=== PATIENT | male | born 1960 | race Caucasian/White ===

== ENCOUNTER 2016-12-02 13:52 | Emergency (ER) | payer OTHER ==
[2016-12-02 14:00] VITALS: BP 132/89; PULSE 105; TEMP 98; BMI 29.0
[2016-12-02] MEDS ORDERED: VANCOMYCIN 1,000 MG in DEXTROSE 5%-WATER - 250 ML IVPB ONE (14:54)
[2016-12-02] MEDS ORDERED: SODIUM CHLORIDE 1,000 ML IV ONE (14:55)
[2016-12-02] MEDS ORDERED: SODIUM CHLORIDE 0.9% 1000 ML INFUS.BAG IV ONE (14:56)
[2016-12-02] MEDS ORDERED: VANCOMYCIN 1 GRAM (PRE-DOCKED) 250 ML IVPB ONE (15:08)
--- NOTE | 2016-12-02 15:17 | PDOC ---
History of Present Illness - General Chief Complaint: Bite Stated Complaint: DOGBITE Time Seen by Provider: 12/02/16 14:16 History Source: Patient Exam Limitations: No Limitations - History of Present Illness Initial Comments: 12/02/16 15:40 Patient was playing with his dog yesterday when while roughhousing dog accidentally bit him in the left hand. Patient states cleaned wound but woke up this morning with swelling, pain and difficulty flexing and extending fingers. Was seen by his doctor at [facility] recommended him coming to the emergency department for evaluation and treatment. Patient denies fever, denies any purulent drainage from wound however is becoming more swollen and erythematous throughout today Occurred: reports: yesterday Severity: reports: mild, moderate Pain Location: reports: upper extremity Method of Injury: Yes: other (left hand) Past History - Travel Traveled outside of the country in the last 30 days: No Close contact w/someone who was outside of country & ill: No - Past Medical History Allergies/Adverse Reactions: Allergies Allergy/AdvReac Type Severity Reaction Status Date / Time No Known Allergies Allergy Verified 12/02/16 13:56 Home Medications: Ambulatory Orders Cyclobenzaprine HCl [Amrix] 15 mg PO HS #3 capsule 09/25/13 Hydrocodone/Acetaminophen [[place] 5-325 Tablet] 1 - 2 tab PO Q4H PRN #30 tablet 09/25/13 Ibuprofen [Motrin Ib] 200 mg PO Q6H PRN #0 09/25/13 Ketorolac Tromethamine [Toradol] 10 mg PO Q6H #20 tablet 09/25/13 Naproxen Sodium [Aleve] 220 mg PO Q6H PRN #0 09/25/13 Amoxicillin/Potassium Clav [Augmentin 875-125 Tablet] 1 each PO BID #14 tablet 12/02/16 Anemia: No Asthma: No Cancer: Yes (WARP DRAWER LYMPHOMA) Cardiac Disorders: No CVA: No COPD: No CHF: No Dementia: No Diabetes: No GI Disorders: No Disorders: No HTN: No Hypercholesterolemia: No Liver Disease: No Seizures: No Thyroid Disease: No - Psycho/Social/Smoking Cessation Hx Suicidal Ideation: No Smoking History: Current every day smoker Have you smoked in the past 12 months: Yes Number of Cigarettes Smoked Daily: 10 Information on smoking cessation initiated: No Hx Alcohol Use: Yes (SOCIAL) Drug/Substance Use Hx: No Substance Use Type: Alcohol Hx Substance Use Treatment: No Trauma Specific PMHX - Complaint Specific PMHX Back Injury: No Neck Injury: No Review of Systems - Review of Systems Able to Perform ROS?: Yes Is the patient limited Northern Irish proficient: Yes Constitutional: Yes: Symptoms Reported HEENTM: No: Symptoms Reported Integumentary: Yes: Symptoms Reported, Erythema, Other (swelling and streaking noted to the left hand extending up past elbow) Neurological: Yes: Symptoms reported All Other Systems: Reviewed and Negative *Physical Exam - Vital Signs Last Vital Signs Temp Pulse Resp BP Pulse Ox 98 F 105 H 19 132/89 98 12/02/16 13:57 12/02/16 13:57 12/02/16 13:57 12/02/16 13:57 12/02/16 13:57 - Physical Exam General Appearance: Yes: Appropriately Dressed, Apparent Distress HEENT: positive: LUIS, Normal ENT Inspection, TMs Normal, Pharynx Normal Neck: positive: Supple. negative: Lymphadenopathy (R), Lymphadenopathy (L) Respiratory/Chest: positive: Lungs Clear, Normal Breath Sounds Gastrointestinal/Abdominal: positive: Soft. negative: Tender Musculoskeletal: positive: Decreased Range of Motion (with swelling and pain to dorsum of hand ) Extremity: positive: Tender Integumentary: positive: Warm, Erythema, Other (with streaking up ) Neurologic: positive: switch operator II-XII NML intact, Fully Oriented, Alert, Normal Mood/ Affect, Normal Response, Motor Strength 5/5 ED Treatment Course - LABORATORY CBC & Chemistry Diagram: 12/02/16 15:00 12/02/16 15:00 Progress Note - Progress Note Progress Note: Dog bite with lymphangitis, will obtain labs, ride 1 g of vancomycin and reevaluate area patient understands if laboratory work and symptoms showed no improvement will probably need admission for hand cellulitis. Denies need for pain medication presently Medical Decision Making - Medical Decision Making 12/02/16 18:09 12/02/16 18:20 Patient has received 1 g of vancomycin, and 500 mg of Flagyl. 1 dose of Augmentin 875 mg by mouth. States hand feels better although is still swollen, feels is less erythematous and streaking is mildly resolved. Patient agrees feels comfortable being discharged, will receive antibiotic Augmentin to continue twice a day for one week. Agrees will return here tomorrow for reevaluation of wound and understands if worsens symptoms, fevers, swelling, problems will return immediately to this emergency department elisabet 12/02/16 18:24 *DC/Admit/Observation/Transfer Diagnosis at time of Disposition: Dog bite of hand Qualifiers: Encounter type: initial encounter Laterality: right Qualified Code(s): S61.451A - Open bite of right hand, initial encounter; W54.0XXA - Bitten by dog , initial encounter - Discharge Dispostion Disposition: HOME Condition at time of disposition: Stable Admit: No - Patient Instructions Printed Discharge Instructions: How to Care for a Domestic Animal Bite Additional Instructions: Rest, keep area elevated. At all times Avoid strenuous activity or exercise until wound is healed Use hot soaks to area to bring more blood to the surface and encourage drainage as often as possible Change his dressing daily until the wound is completely healed. May use Tylenol or Motrin for mild pain relief Continue all medications as prescribed- Augmentin 875 mg tablets twice a day Return to this emergency Department tomorrow before 5 PM for wound check Return to emergency Department for worsening swelling, pain, redness, fevers as needed - Post Discharge Activity Work/School Note: Back to Work
[2016-12-02 15:20] LABS: BASOPHIL 0.4 % (0-2.0); EOSINOPHIL 0.4 % (0-4.5); MCH 31.5 pg (25.7-33.7); MCHC 34.3 g/dl (32.0-35.9); MEAN CELL VOLUME 92.1 fl (80-96); MEAN PLT VOLUME 9.5 fl (7.5-11.1); NEUTROPHILS 79.1 % (42.8-82.8); PLATELET COUNT 194 K/MM3 (134-434); RDW 13.1 % (11.9-15.9); WHITE BLOOD COUNT 13.3 K/mm3 (4.0-10.0)
[2016-12-02 15:46] LABS: ALBUMIN 4.3 g/dl (3.4-5.0); ALK PHOS 111 U/L (45-117); ANION GAP 10 (8-16); BILIRUBIN,TOTAL 0.8 mg/dL (0.2-1.0); CALCIUM 9.4 mg/dL (8.5-10.1); CO2 27 mmol/L (21-32); COCKROFT - GAULT 81.26; CREATININE 1.2 mg/dL (0.7-1.3); GLUCOSE,RANDOM 81 mg/dL (74-106); SGOT/AST 25 U/L (15-37); SGPT/ALT 58 U/L (12-78); TOT PROT 7.4 g/dl (6.4-8.2)
--- NOTE | 2016-12-02 15:55 | PDOC ---
History of Present Illness - General Chief Complaint: Bite Stated Complaint: DOGBITE Time Seen by Provider: 12/02/16 14:16 History Source: Patient, Family Exam Limitations: No Limitations - History of Present Illness Initial Comments: 12/02/16 15:02 bitten by family dog yesterday. to left hand at MCP of 3rd digit. Now with pain and swelling to hand with red streaking. Past History - Past Medical History Allergies/Adverse Reactions: Allergies Allergy/AdvReac Type Severity Reaction Status Date / Time No Known Allergies Allergy Verified 12/02/16 13:56 Home Medications: Ambulatory Orders Cyclobenzaprine HCl [Amrix] 15 mg PO HS #3 capsule 09/25/13 Hydrocodone/Acetaminophen [[place] 5-325 Tablet] 1 - 2 tab PO Q4H PRN #30 tablet 09/25/13 Ibuprofen [Motrin Ib] 200 mg PO Q6H PRN #0 09/25/13 Ketorolac Tromethamine [Toradol] 10 mg PO Q6H #20 tablet 09/25/13 Naproxen Sodium [Aleve] 220 mg PO Q6H PRN #0 09/25/13 Anemia: No Asthma: No Cancer: Yes (MANAGER OF RADIOLOGY LYMPHOMA) Cardiac Disorders: No CVA: No COPD: No CHF: No Dementia: No Diabetes: No GI Disorders: No Disorders: No HTN: No Hypercholesterolemia: No Liver Disease: No Seizures: No Thyroid Disease: No - Psycho/Social/Smoking Cessation Hx Suicidal Ideation: No Smoking History: Current every day smoker Have you smoked in the past 12 months: Yes Number of Cigarettes Smoked Daily: 10 Information on smoking cessation initiated: No Hx Alcohol Use: Yes (SOCIAL) Drug/Substance Use Hx: No Substance Use Type: Alcohol Hx Substance Use Treatment: No *Physical Exam - Vital Signs Last Vital Signs Temp Pulse Resp BP Pulse Ox 98 F 105 H 19 132/89 98 12/02/16 13:57 12/02/16 13:57 12/02/16 13:57 12/02/16 13:57 12/02/16 13:57 ED Treatment Course - RADIOLOGY Radiology Studies Ordered: Category Date Time Status HAND- LEFT [RAD] Stat Radiology 12/02/16 14:38 Taken
[2016-12-02] MEDS ORDERED: AMOX TR/POT CLAV 875MG/125MG TABLETS (FP) PO ONE (16:55)
[2016-12-02] MEDS ORDERED: METRONIDAZOLE 500 MG PREMIXED 100 ML IVPB ONE ×2 (16:55→17:16)
[2016-12-02] MEDS ORDERED: AMOX TR/POT CLAV 875MG/125MG TABLETS (FP) ONE (17:17)
== END 2016-12-02 18:40 | disposition home or self-care (01) ==
LOC: JERFT 13:52
DX: S61.451A Open bite of right hand, initial encounter (principal); W54.0XXA Bitten by dog, initial encounter; Y93.K9 Activity, other involving animal care; Y92.018 Other place in single-family (private) house as the place of occurrence of the external cause
CPT/HCPCS: 36415; 73130-TC-LT; 80053; 85025; 87040; 99281-25

== ENCOUNTER 2016-12-03 13:46 | Inpatient (IN) | payer OTHER ==
[2016-12-03] MEDS ORDERED: AMPICILLIN NA/SULBACTAM NA 3 GM in SODIUM CHLORIDE 100 ML IVPB ONE (14:45)
--- NOTE | 2016-12-03 14:45 | PDOC ---
History of Present Illness - General Chief Complaint: Revisit,Wound Recheck Stated Complaint: WOUND CHECK Time Seen by Provider: 12/03/16 13:55 History Source: Patient Exam Limitations: No Limitations - History of Present Illness Initial Comments: 56 yo M presents with L hand swelling. He states that he was playing with his dog on 12/01/16, sustained a bite while they were playing. He noted significant swelling with streaking up his arm yesterday. He was treated in the ED in fast track, given IV abx and rx for PO abx, counseled to follow up today. Today he states that the swelling is slightly better, but his hand is still swollen. No drainage from the wound. Past History - Past Medical History Allergies/Adverse Reactions: Allergies Allergy/AdvReac Type Severity Reaction Status Date / Time No Known Allergies Allergy Verified 12/03/16 13:50 Home Medications: Ambulatory Orders Cyclobenzaprine HCl [Amrix] 15 mg PO HS #3 capsule 09/25/13 Hydrocodone/Acetaminophen [[place] 5-325 Tablet] 1 - 2 tab PO Q4H PRN #30 tablet 09/25/13 Ibuprofen [Motrin Ib] 200 mg PO Q6H PRN #0 09/25/13 Ketorolac Tromethamine [Toradol] 10 mg PO Q6H #20 tablet 09/25/13 Naproxen Sodium [Aleve] 220 mg PO Q6H PRN #0 09/25/13 Amoxicillin/Potassium Clav [Augmentin 875-125 Tablet] 1 each PO BID #14 tablet 12/02/16 Anemia: No Asthma: No 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) Cardiac Disorders: No CVA: No COPD: No CHF: No Dementia: No Diabetes: No GI Disorders: No Disorders: No HTN: No Hypercholesterolemia: No Liver Disease: No Seizures: No Thyroid Disease: No - Psycho/Social/Smoking Cessation Hx Anxiety: No Suicidal Ideation: No Smoking History: Current every day smoker Have you smoked in the past 12 months: Yes Number of Cigarettes Smoked Daily: 10 Information on smoking cessation initiated: No Hx Alcohol Use: Yes (RARE) Drug/Substance Use Hx: No Substance Use Type: None Hx Substance Use Treatment: No Review of Systems - Review of Systems Comments:: GENERAL/CONSTITUTIONAL: No fever or chills. No weakness. HEAD, EYES, EARS, NOSE AND THROAT: No change in vision. No ear pain or discharge. No sore throat. CARDIOVASCULAR: No chest pain or shortness of breath. RESPIRATORY: No cough, wheezing, or hemoptysis. GASTROINTESTINAL: No nausea, vomiting, diarrhea or constipation. GENITOURINARY: No dysuria, frequency, or change in urination. MUSCULOSKELETAL: +L hand swelling and redness. SKIN: No rash NEUROLOGIC: No headache, vertigo, loss of consciousness, or change in strength/ sensation. ENDOCRINE: No increased thirst. No abnormal weight change. HEMATOLOGIC/LYMPHATIC: No anemia, easy bleeding, or history of blood clots. ALLERGIC/IMMUNOLOGIC: No hives or skin allergy. Is the patient limited Occitan proficient: Yes *Physical Exam - Vital Signs Last Vital Signs Temp Pulse Resp BP Pulse Ox 98.3 F 102 H 20 118/91 99 12/03/16 13:47 12/03/16 13:47 12/03/16 13:47 12/03/16 13:47 12/03/16 13:47 - Physical Exam Comments: GENERAL: Awake, alert, and fully oriented, in no acute distress HEAD: No signs of trauma EYES: PERRLA, EOMI, sclera anicteric, conjunctiva clear ENT: Auricles normal inspection, hearing grossly normal, nares patent, oropharynx clear without exudates. Moist mucosa NECK: Normal ROM, supple, no lymphadenopathy, JVD, or masses LUNGS: Breath sounds equal, clear to auscultation bilaterally. No wheezes, and no crackles HEART: Regular rate and rhythm, normal S1 and S2, no murmurs, rubs or gallops ABDOMEN: Soft, nontender, normoactive bowel sounds. No guarding, no rebound. No masses EXTREMITIES: L dorsal hand erythematous and edematous, no induration, with lymphatic streaking to the forearm. +Puncture luis just proximal to the MCP joints. Remainder of extremities with normal range of motion, no edema. No clubbing or cyanosis. No cords. NEUROLOGICAL: Cranial nerves II through XII grossly intact. Normal speech, normal gait SKIN: Warm, Dry, normal turgor, no rashes or lesions noted. ED Treatment Course - LABORATORY CBC & Chemistry Diagram: 12/03/16 14:50 12/03/16 14:50 Medical Decision Making - Medical Decision Making Noted that yesterday's x-ray showed FB- patient states that he has a metallic FB in the 4th finger from 25 years ago, unrelated to this current presentation. *DC/Admit/Observation/Transfer Diagnosis at time of Disposition: Cellulitis and abscess of hand Dog bite of hand Qualifiers: Encounter type: subsequent encounter Laterality: left Qualified Code(s): S61.452D - Open bite of left hand, subsequent encounter - Discharge Dispostion Condition at time of disposition: Stable Admit: Yes - Referrals Referrals: Ricardo Skinner MD [Primary Care Provider] - - Patient Instructions - Post Discharge Activity
--- NOTE | 2016-12-03 14:45 | PDOC ---
History of Present Illness - General Chief Complaint: Revisit,Wound Recheck Stated Complaint: WOUND CHECK Time Seen by Provider: 12/03/16 13:55 History Source: Patient Exam Limitations: No Limitations - History of Present Illness Initial Comments: 12/03/16 14:40 Dog bite 2 days ago with cellulitis. Failed home by mouth antibiotics, return today for reevaluation but not significantly improved therefore we will admit Severity: reports: moderate, severe Pain Location: reports: upper extremity Method of Injury: Yes: other (left hand) Past History - Travel Traveled outside of the country in the last 30 days: No Close contact w/someone who was outside of country & ill: No - Past Medical History Allergies/Adverse Reactions: Allergies Allergy/AdvReac Type Severity Reaction Status Date / Time No Known Allergies Allergy Verified 12/03/16 13:50 Home Medications: Ambulatory Orders Cyclobenzaprine HCl [Amrix] 15 mg PO HS #3 capsule 09/25/13 Hydrocodone/Acetaminophen [[place] 5-325 Tablet] 1 - 2 tab PO Q4H PRN #30 tablet 09/25/13 Ibuprofen [Motrin Ib] 200 mg PO Q6H PRN #0 09/25/13 Ketorolac Tromethamine [Toradol] 10 mg PO Q6H #20 tablet 09/25/13 Naproxen Sodium [Aleve] 220 mg PO Q6H PRN #0 09/25/13 Amoxicillin/Potassium Clav [Augmentin 875-125 Tablet] 1 each PO BID #14 tablet 12/02/16 Anemia: No Asthma: No 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) Cardiac Disorders: No CVA: No COPD: No CHF: No Dementia: No Diabetes: No GI Disorders: No Disorders: No HTN: No Hypercholesterolemia: No Liver Disease: No Seizures: No Thyroid Disease: No - Psycho/Social/Smoking Cessation Hx Anxiety: No Suicidal Ideation: No Smoking History: Current every day smoker Have you smoked in the past 12 months: Yes Number of Cigarettes Smoked Daily: 10 Information on smoking cessation initiated: No Hx Alcohol Use: Yes (RARE) Drug/Substance Use Hx: No Substance Use Type: None Hx Substance Use Treatment: No Trauma Specific PMHX - Complaint Specific PMHX Back Injury: No Neck Injury: No Review of Systems - Review of Systems Able to Perform ROS?: Yes Is the patient limited Moldovan proficient: Yes Constitutional: Yes: See HPI. No: Symptoms Reported, Fever HEENTM: No: Symptoms Reported Respiratory: No: Symptoms reported Integumentary: Yes: Symptoms Reported, See HPI, Erythema, Lesions (open wound to ) All Other Systems: Reviewed and Negative *Physical Exam - Vital Signs Last Vital Signs Temp Pulse Resp BP Pulse Ox 98.3 F 102 H 20 118/91 99 12/03/16 13:47 12/03/16 13:47 12/03/16 13:47 12/03/16 13:47 12/03/16 13:47 - Physical Exam General Appearance: Yes: Appropriately Dressed, Apparent Distress HEENT: positive: TMs Normal Neck: positive: Supple. negative: Lymphadenopathy (R), Lymphadenopathy (L) Cardiovascular: positive: Regular Rhythm *DC/Admit/Observation/Transfer Diagnosis at time of Disposition: Dog bite of hand Qualifiers: Encounter type: subsequent encounter Laterality: left Qualified Code(s): S61.452D - Open bite of left hand, subsequent encounter; W54.0XXD - Bitten by dog, subsequent encounter - Discharge Dispostion Condition at time of disposition: Stable
[2016-12-03 15:08] LABS: BASOPHIL 0.6 % (0-2.0); EOSINOPHIL 1.2 % (0-4.5); MCH 32.1 pg (25.7-33.7); MCHC 34.6 g/dl (32.0-35.9); MEAN CELL VOLUME 92.8 fl (80-96); MEAN PLT VOLUME 9.4 fl (7.5-11.1); NEUTROPHILS 71.2 % (42.8-82.8); PLATELET COUNT 170 K/MM3 (134-434); RDW 13.3 % (11.9-15.9); WHITE BLOOD COUNT 9.8 K/mm3 (4.0-10.0)
[2016-12-03 15:30] LABS: ALBUMIN 3.9 g/dl (3.4-5.0); ANION GAP 9 (8-16); BILIRUBIN,TOTAL 0.5 mg/dL (0.2-1.0); CALCIUM 8.6 mg/dL (8.5-10.1); CO2 26 mmol/L (21-32); COCKROFT - GAULT 88.65; CREATININE 1.1 mg/dL (0.7-1.3); GLUCOSE,RANDOM 96 mg/dL (74-106); SGPT/ALT 48 U/L (12-78)
[2016-12-03 15:31] LABS: ALK PHOS 97 U/L (45-117)
[2016-12-03 15:34] LABS: SGOT/AST 28 U/L (15-37)
--- NOTE | 2016-12-03 15:47 | PN ---
Teaching Attending Note Name of Resident: Abdias Millre ATTENDING PHYSICIAN STATEMENT I saw and evaluated the patient. I reviewed the resident's note and discussed the case with the resident. I agree with the resident's findings and plan as documented. SUBJECTIVE: The patient is a 56 year old male with a significant past medical history of resolved ANTHROPOMETRIST lymphona (sp SCT) who was bitten on the left hand by his own dog on 12/01 and was seen in the ED yesterday when he noted redness at the bite area. He was given IV Flagy, IV Vanco and oral Augmentin in the ED yesterday and was discharged on Augmentin. He presented to the ED today after the area of redness increased and began migrating proximally. He denies fever, chills. OBJECTIVE: Vitals noted Labs noted He is well appearing Puncture wound on dorsum of hand on medial 4th finder at level of PIP No crepitance at wound site There is erythema, edema, increased warmth and tenderness over the lateral dorsal hand, with extension just proximal to the wrist. There is erythema, edema, increased warmth and tenderness over the lateral ventral hand, withe xtension just proximal to lizbeth wrist and then an area of faint streaking redness following a lymphatic route up the forearm, to the elbow Xray from yesterday: foreign body in distal 4th finger, which the patient insists is chronic ASSESSMENT AND PLAN: -Cellulitis with lymphangitic spread No evidence of sepsis or deep tissue infection Has received IV flagyl, IV Vanco and oral Augmentin yesterday. Yet symptoms are worsening Got Unasyn in the ED today Will change regimen to Ertapenem and Vancomycin to cover anaerobes, gram negatives including pseudomonas, gram positives including MRSA Will consult ID and Hand Will follow closely See resident note for full details
--- NOTE | 2016-12-03 15:50 | HP ---
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 Patient was seen in the ED yesterday and treated with Flagyl vanco and augmentin and given script for PO Augmentin. He came back today becauise he was told to do so for follow up. He was bit over the fourth knuckle of the left hand and Per the patient and ED records he had streaking lympnangitis/cellulitis going up the volar aspect of his forearm up to the antecubial fossa. today he presents to follow up the streaking has significantly improved but over the dorsal aspect of his hand the redness and swelling did not improve. He denies nausea vomting fevers chilsl chest pain or shortness of breath. He denies any other PMH or any home meds. Recent Travel:Denies PAST MEDICAL HISTORY:See above PAST SURGICAL HISTORY:Denies Social History: Smokin/2 PPD Alcohol:Denies Drugs: Denies Allergies No Known Allergies Allergy (Verified 12/03/16 13:50) HOME MEDICATIONS: Home Medications Medication Instructions Recorded Cyclobenzaprine HCl [Amrix] 15 mg PO HS #3 capsule 09/25/13 Hydrocodone/Acetaminophen [[place] 1 - 2 tab PO Q4H PRN #30 tablet 09/25/13 5-325 Tablet] Ibuprofen [Motrin Ib] 200 mg PO Q6H PRN #0 09/25/13 Ketorolac Tromethamine [Toradol] 10 mg PO Q6H #20 tablet 09/25/13 Naproxen Sodium [Aleve] 220 mg PO Q6H PRN #0 09/25/13 Amoxicillin/Potassium Clav 1 each PO BID #14 tablet 12/02/16 [Augmentin 875-125 Tablet] REVIEW OF SYSTEMS CONSTITUTIONAL: Absent: fever, chills, diaphoresis, generalized weakness, malaise, loss of appetite, weight change HEENT: Absent: rhinorrhea, nasal congestion, throat pain, throat swelling, difficulty swallowing, mouth swelling, ear pain, eye pain, visual changes CARDIOVASCULAR: Absent: chest pain, syncope, palpitations, irregular heart rate, lightheadedness , peripheral edema RESPIRATORY: Absent: cough, shortness of breath, dyspnea with exertion, orthopnea, wheezing, stridor, hemoptysis GASTROINTESTINAL: Absent: abdominal pain, abdominal distension, nausea, vomiting, diarrhea, constipation, melena, hematochezia GENITOURINARY: Absent: dysuria, frequency, urgency, hesitancy, hematuria, flank pain, genital pain MUSCULOSKELETAL: Absent: myalgia, arthralgia, joint swelling, back pain, neck pain SKIN: Present: Dog bit to hand with streaking cellulitis HEMATOLOGIC/IMMUNOLOGIC: Absent: easy bleeding, easy bruising, lymphadenopathy, frequent infections ENDOCRINE: Absent: unexplained weight gain, unexplained weight loss, heat intolerance, cold intolerance NEUROLOGIC: Absent: headache, focal weakness or paresthesias, dizziness, unsteady gait, seizure, mental status changes, bladder or bowel incontinence PSYCHIATRIC: Absent: anxiety, depression, suicidal or homicidal ideation, hallucinations. PHYSICAL EXAMINATION Vital Signs - 24 hr 12/03/16 13:47 Temperature 98.3 F Pulse Rate 102 H Respiratory 20 Rate Blood Pressure 118/91 O2 Sat by Pulse 99 Oximetry (%) GENERAL: Awake, alert, and fully oriented, in no acute distress. HEAD: Normal with no signs of trauma. EYES: Pupils equal, round and reactive to light, extraocular movements intact, sclera anicteric, conjunctiva clear. No lid lag. EARS, NOSE, THROAT: Ears normal, nares patent, oropharynx clear without exudates. Moist mucous membranes. NECK: Normal range of motion, supple no JVD LUNGS: Breath sounds equal, clear to auscultation bilaterally. No wheezes, and no crackles. No accessory muscle use. HEART: Regular rate and rhythm, normal S1 and S2 without murmur, rub or gallop. ABDOMEN: Soft, nontender, not distended, normoactive bowel sounds, no guarding, no rebound, no masses. MUSCULOSKELETAL: Normal range of motion at all joints. No bony deformities or tenderness. No CVA tenderness. UPPER EXTREMITIES: 2+ pulses, warm, well-perfused. left hand is erythematous and hot to touch over the dorsum of the hand with a superficial puncture over the fourth knuckle. Resolving streaking cellulitis going up the volar aspect of the forearm to the antecubital fossa which has improved per patient but the swelling and redness is worsening over the hand. no crepitance is appreciated LOWER EXTREMITIES: warm, well-perfused. No calf tenderness. No peripheral edema. NEUROLOGICAL: Cranial nerves II-XII intact. Normal speech. PSYCHIATRIC: Cooperative. Laboratory Results - last 24 hr 12/03/16 12/03/16 14:50 14:50 WBC 9.8 RBC 5.11 Hgb 16.4 Hct 47.4 MCV 92.8 MCHC 34.6 RDW 13.3 Plt Count 170 MPV 9.4 Neutrophils % 71.2 Lymphocytes % 21.1 D Monocytes % 5.9 Eosinophils % 1.2 D Basophils % 0.6 Sodium 141 Potassium 4.7 Chloride 106 Carbon Dioxide 26 Anion Gap 9 BUN 17 Creatinine 1.1 Creat Clearance w eGFR > 60 Random Glucose 96 Calcium 8.6 Total Bilirubin 0.5 D AST 28 ALT 48 Alkaline Phosphatase 97 Total Protein 7.0 Albumin 3.9 Left Hand XR 12/02/2016-no acute pathology metallic foreign object seen near fourth proximal phalynx-patient states this is 25 years old ASSESSMENT/PLAN: 56M with no significant PMH presents to the ED with a dog bite and failed outpatient antibiotics Dog bite leading to cellulitis/lymphangitis: Admit to inpatient Med/Surg Hand surgery consult ID consult STAT vanco STAT ertapenem F/U BCx F/U WCx Unasyn given in ED today history of MARKET G[employer] WORKER lymphoma: not active at this time in remission can continue with outpatient follow up FEN: no IVF no electrolyte issues Regular diet PPx: Lovenox/SCDs/Early ambulation no GI PPx needed No PT consult needed Patient seen and case discusses with Dr. Miller Visit type - Emergency Visit Emergency Visit: Yes Care time: The patient presented to the Emergency Department on the above date and was hospitalized for further evaluation of their emergent condition. - New Patient This patient is new to me today: Yes Date on this admission: 12/03/16 - Critical Care Critical Care patient: No
[2016-12-03] MEDS ORDERED: ERTAPENEM SODIUM 1 GM in SODIUM CHLORIDE 50 ML IVPB STA (16:05)
[2016-12-03] MEDS ORDERED: VANCOMYCIN 1 GRAM (PRE-DOCKED) 1,000 MG/250 ML BAG IVPB STA (16:06)
[2016-12-03] MEDS ORDERED: ACETAMINOPHEN 325 MG TABLET (FP) PO PRN (16:15)
[2016-12-03] MEDS ORDERED: oxyCODONE HCL 5 MG TABLET PO PRN (16:16)
[2016-12-03] MEDS ORDERED: VANCOMYCIN 1 GRAM (PRE-DOCKED) 1,000 MG/250 ML BAG IVPB ONE (16:45)
[2016-12-03] MEDS ORDERED: VANCOMYCIN 1 GRAM (PRE-DOCKED) 250 ML IVPB ONE (17:09)
[2016-12-04 02:26] VITALS: BMI 30.4
[2016-12-04 08:50] LABS: MCH 31.9 pg (25.7-33.7); MCHC 34.4 g/dl (32.0-35.9); MEAN CELL VOLUME 92.8 fl (80-96); MEAN PLT VOLUME 9.4 fl (7.5-11.1); PLATELET COUNT 147 K/MM3 (134-434); RDW 12.9 % (11.9-15.9)
--- NOTE | 2016-12-04 12:45 | PN ---
Progress Note (short form) - Note Progress Note: Subjective: no fever or chills, he feels his had looks better . has numbness in tip of his fingers on both sides, from chemo Objective: Vital Signs: Last Vital Signs Temp Pulse Resp BP Pulse Ox 98.1 F 70 18 99/65 99 12/04/16 05:53 12/04/16 05:53 12/04/16 05:53 12/04/16 05:53 12/03/16 21:00 Physical Exam: NAD CV: RRR Lungs : CTAB ext : no edema over LE . L dorsal hand with erythema , increased warmth and edema . with streaking redness on posterior lower arm ( marked ) . draining wound on dorsal hand between 3rd and 4th knuckles seen with purulent drainage when squeezed Labs: Laboratory Results - last 24 hr 12/03/16 12/03/16 12/04/16 14:50 14:50 08:00 WBC 9.8 9.0 RBC 5.11 4.68 Hgb 16.4 14.9 Hct 47.4 43.4 MCV 92.8 92.8 MCHC 34.6 34.4 RDW 13.3 12.9 Plt Count 170 147 MPV 9.4 9.4 Neutrophils % 71.2 Lymphocytes % 21.1 D Monocytes % 5.9 Eosinophils % 1.2 D Basophils % 0.6 Sodium 141 Potassium 4.7 Chloride 106 Carbon Dioxide 26 Anion Gap 9 BUN 17 Creatinine 1.1 Creat Clearance w eGFR > 60 Random Glucose 96 Calcium 8.6 Total Bilirubin 0.5 D AST 28 ALT 48 Alkaline Phosphatase 97 Total Protein 7.0 Albumin 3.9 Assessment/Plan: 56 y/o gentleman with h/o TOLL MECHANIC lymphoma , in remission now , who rpesented with worsening hand swelling , and pain with draining wound after a dog bite 1- Cellulitis of L dorsal hand with abscess formation and lymphangitis , failed out pt therapy . improved with current abx - There is an abscess there , message left again for Dr. Graves ( only option ) - Cont Ertapenem and vanco pending ID evaluation - follow wound cx , still pending - no leukocytosis or fever 2- DVT px 3- TOLL MECHANIC lymphoma , in remission dispo : HLOC Visit type - Emergency Visit Emergency Visit: Yes ED Registration Date: 12/03/16 Care time: The patient presented to the Emergency Department on the above date and was hospitalized for further evaluation of their emergent condition. - New Patient This patient is new to me today: Yes Date on this admission: 12/04/16 - Critical Care Critical Care patient: No
[2016-12-04] MEDS ORDERED: VANCOMYCIN 1,250 MG in DEXTROSE 5%-WATER - 250 ML IVPB ONE (13:00)
[2016-12-04] MEDS: ENOXAPARIN NA (PORCINE) 40 MG/0.4 ML DISP.SYRIN SQ SCH (13:05)
[2016-12-04] MEDS ORDERED: ERTAPENEM SODIUM 1 GM in SODIUM CHLORIDE 50 ML IVPB SCH (16:00)
--- NOTE | 2016-12-04 16:08 | PN ---
Progress Note (short form) - Note Progress Note: ID Consult dictated Cellulitis L hand s/p dog bite Hx SUPERVISOR TITLE Lymphoma s/p chemo, SCT (2014) Await c/s Empiric unasyn/ vancomycin Hand surgery evaluation Elevation
[2016-12-04] MEDS: VANCOMYCIN 1 GRAM (PRE-DOCKED) 250 ML IVPB SCH (16:41)
--- NOTE | 2016-12-04 17:17 | EKG ---
Test Reason : Blood Pressure : / mmHG Vent. Rate : 079 BPM Atrial Rate : 079 BPM P-R Int : 140 ms QRS Dur : 100 ms QT Int : 362 ms P-R-T Axes : 007 -06 040 degrees QTc Int : 415 ms NORMAL SINUS RHYTHM INCOMPLETE RIGHT BUNDLE BRANCH BLOCK MODERATE VOLTAGE CRITERIA FOR LVH, MAY BE NORMAL VARIANT BORDERLINE ECG NO PREVIOUS ECGS AVAILABLE Confirmed by SHANTAL MEDINA MD ([id number]) on 12/04/2016 5:16:44 PM Referred By: Confirmed By:SHANTAL MEDINA MD
--- NOTE | 2016-12-04 17:48 | CONS ---
DATE OF CONSULTATION: DATE OF DICTATION: 12/04/2016 The patient is a 56-year-old male with a history of OPERATION MANAGER lymphoma, status post chemotherapy and stem cell transplant, now evaluated for cellulitis of the left hand, status post dog bite. Patient reports that on December 01, 2016, he was bitten on his hand by his own dog. He promptly cleaned the wound. Subsequent to that, he developed increasing pain and swelling of his left hand. He had presented to the emergency room, where he was evaluated. He was given a dose of vancomycin and Flagyl and discharged home with p.o. Augmentin. Despite the antibiotic therapy, he had worsening left hand swelling, erythema, and development of lymphangitic streaking. He noted some purulent drainage from the wound. He denied any fever or chills. He returned for a wound check on December 03, 2016, and was admitted. At the present time he reports improvement with the IV antibiotic therapy. He continues to complain of some swelling, dorsum of the left hand, and some drainage from the bite wound. The cellulitis and lymphangitis has significantly improved. He denies any fever or chills. The patient was bitten by his own dog, which was up-to-date with regard to vaccinations. Past medical history positive for OPERATION MANAGER lymphoma diagnosed 3 years ago. He received 5 rounds of chemotherapy followed by stem cell transplant. His treatment ended in December of 2014. No known allergies. MEDICATIONS: Tylenol, Lovenox, oxycodone. SOCIAL HISTORY: He works for [employer]. Positive tobacco use and occasional EtOH. SYSTEMS REVIEW: Neurologic: No loss of consciousness, seizure activity, focal weakness. Cardiac: Negative chest pain or palpitations. Respiratory: Negative cough or sputum production. Gastrointestinal: Negative vomiting or diarrhea. Genitourinary: Negative for urinary tract infection. LABORATORY DATA: White count 9.0, hematocrit 43.4, platelet count 147. BUN 17, creatinine 1.1. Cultures pending. An x-ray of the hand shows soft tissue swelling and a small metallic foreign body along the radial soft tissues near the 4th proximal phalanx. No fracture or dislocation. No gas in the soft tissue. PHYSICAL EXAMINATION: General: He is awake, alert. He is not acutely toxic appearing. Vital Signs: Temperature 98.6. Blood pressure 132/87. Pulse 96, regular. Respirations 18 per minute. Eyes: Sclerae anicteric. Heart Sounds: S1, S2. Lungs: Clear. Abdomen: Soft. No tenderness elicited. No mass, rebound or rigidity. Extremities: Examination of the left hand, there is a puncture wound corresponding to the bite wound over the 3rd MCP joint. There is swelling of the 3rd and 4th MCP joints and swelling and erythema extending from the dorsum of the hand to the wrist area. There is mild lymphangitic streaking. No epitrochlear or axillary adenopathy palpable. No crepitus or fluctuance. There is slight serous drainage noted from the bite wound. IMPRESSION: 1. Cellulitis of the left hand status post dog bite. 2. History of central nervous system lymphoma, status post chemotherapy and stem cell transplant. Await cultures. Obtain sedimentation rate, C-reactive protein. Hand surgery evaluation. Empiric Unasyn and vancomycin. Elevation. Analgesics. Will follow. Thank you for the kind referral. ODILIA MOE M.D. JANET/[id number]
[2016-12-04] MEDS ORDERED: PT OWN MED DRAWER 7, Y5N ONE ×2 (17:52→17:56)
[2016-12-04] MEDS: AMPICILLIN NA/SULBACTAM NA 3 GM in SODIUM CHLORIDE 100 ML IVPB SCH ×2 (18:02→20:04)
[2016-12-05] MEDS: AMPICILLIN NA/SULBACTAM NA 3 GM in SODIUM CHLORIDE 100 ML IVPB SCH ×3 (02:10→14:29)
[2016-12-05] MEDS: VANCOMYCIN 1 GRAM (PRE-DOCKED) 250 ML IVPB SCH (04:09)
[2016-12-05 05:26] VITALS: TEMP 97.2
[2016-12-05] MEDS ORDERED: PT OWN MED DRAWER 7, Y5N ONE ×2 (09:36→14:27)
[2016-12-05] MEDS: ENOXAPARIN NA (PORCINE) 40 MG/0.4 ML DISP.SYRIN SQ SCH (09:47)
--- NOTE | 2016-12-05 10:07 | CONSULT ---
Consult Consult Specialty:: Plastic Surgery - History of Present Illness Chief Complaint: Infected Dog Bite Left Hand - Alcohol/Substance Use Hx Alcohol Use: Yes (RARE) - Smoking History Smoking history: Current every day smoker Have you smoked in the past 12 months: Yes Aproximately how many cigarettes per day: 10 Home Medications - Allergies Allergies/Adverse Reactions: Allergies Allergy/AdvReac Type Severity Reaction Status Date / Time No Known Allergies Allergy Verified 12/03/16 13:50 - Home Medications Home Medications: Ambulatory Orders Diphenhydramine [Benadryl -] 50 mg NR HS PRN 12/03/16 Physical Exam Vital Signs: Vital Signs Temperature 97.2 F L 12/05/16 05:24 Pulse Rate 60 12/05/16 05:24 Respiratory Rate 20 12/05/16 05:24 Blood Pressure 106/60 12/05/16 05:24 O2 Sat by Pulse Oximetry (%) 98 12/04/16 09:00 Labs: CBC, BMP 12/04/16 08:00 Assessment/Plan Patient is a 56 year-old male who was seen in the ER on Monday after sustaining a Dog Bite to his left hand. He reports signs consistent with ascending lymphangitis at the time. IV antibiotics (Vancomycin) were administered and the patient was sent home on oral anitibiotics. He then returned the next day with worsening symptoms. He was admitted at that time. On exam today patient has a mildly draining wound on the dorsal-ulnar aspect of the left middle finger MP joint. There is minimal swelling and, according to the patient, this is dramatically better than when admitted. There is an ink luis on the forearm outlining a previous zone of redness which is now resolved. There is no neuro-vascular compromise and full ROM is noted. The patient is reliable and I would consider discharge on PO antibiotics with close follow-up if ID follow-up agrees. Thank you.
--- NOTE | 2016-12-05 10:34 | PN ---
Progress Note, Physician Chief Complaint: Clincal improvment noted vancomycin and Unasyn - Current Medication List Current Medications: Active Medications Acetaminophen (Tylenol -) 650 mg PO Q6H PRN PRN Reason: PAIN OR FEVER Enoxaparin Sodium (Lovenox -) 40 mg SQ DAILY [facility] Last Admin: 12/05/16 09:47 Dose: 40 mg Ampicillin Sodium/Sulbactam (Sodium 3 gm/ Sodium Chloride) 100 mls @ 200 mls/ hr IVPB Q6H-IV MALIK Last Admin: 12/05/16 09:47 Dose: 200 mls/hr Vancomycin HCl (Vancomycin (Pre-Docked)) 250 mls @ 200 mls/hr IVPB Q12H MALIK Last Admin: 12/05/16 04:09 Dose: 200 mls/hr Oxycodone HCl (Roxicodone -) 5 mg PO Q6H PRN PRN Reason: MODERATE PAIN - Objective Vital Signs: Vital Signs Temperature 97.2 F L 12/05/16 05:24 Pulse Rate 60 12/05/16 05:24 Respiratory Rate 20 12/05/16 05:24 Blood Pressure 106/60 12/05/16 05:24 O2 Sat by Pulse Oximetry (%) 98 12/04/16 09:00 Extremities: Yes: Other (Left hand still warm with swelling Lymhangitis resolved drainage noted) Labs: CBC, BMP 12/04/16 08:00 Assessment/Plan Microbiology 12/03/16 16:03 Hand - Bite Gram Stain - Final Laboratory Tests 12/04/16 12/05/16 08:00 06:20 WBC 9.0 Hgb 14.9 Plt Count 147 ESR Pending Assessment Infected dog bite with cellulitis/ lymphangitis ? Pasturella Plan wound c/s pending He wants to go home I advised 1 more day Stop Vancomycin Continue Unasyn or send home Augmentin 875bid 7 days outpt follow up in my office Bibiana SMALLS
[2016-12-05 11:43] VITALS: BP 117/71; PULSE 82
--- NOTE | 2016-12-05 14:30 | DS ---
Physical Exam: SUBJECTIVE: Patient seen and examined at bedside really wants to go home OBJECTIVE: Vital Signs Period Temp Pulse Resp BP Sys/Sanches Pulse Ox Last 24 Hr 97.2 F-98.2 F 60-82 18-20 106-117/60-74 PHYSICAL EXAM GENERAL: Awake, alert, and fully oriented, in no acute distress. HEAD: Normal with no signs of trauma. EYES: Pupils equal, round and reactive to light, extraocular movements intact, sclera anicteric, conjunctiva clear. No lid lag. EARS, NOSE, THROAT: Ears normal, nares patent, oropharynx clear without exudates. Moist mucous membranes. NECK: Normal range of motion, supple no JVD LUNGS: Breath sounds equal, clear to auscultation bilaterally. No wheezes, and no crackles. No accessory muscle use. HEART: Regular rate and rhythm, normal S1 and S2 without murmur, rub or gallop. ABDOMEN: Soft, nontender, not distended, normoactive bowel sounds, no guarding, no rebound, no masses. MUSCULOSKELETAL: Normal range of motion at all joints. No bony deformities or tenderness. No CVA tenderness. UPPER EXTREMITIES: 2+ pulses, warm, well-perfused. left hand is much less erythematous. No crepitance. Swelling significantly decreased as well LOWER EXTREMITIES: warm, well-perfused. No calf tenderness. No peripheral edema. NEUROLOGICAL: Cranial nerves II-XII intact. Normal speech. PSYCHIATRIC: Cooperative. LABS Laboratory Results - last 24 hr 12/05/16 12/05/16 06:20 06:20 ESR 16 C-Reactive Protein 2.3 H HOSPITAL COURSE: Date of Admission:12/03/16 Date of Discharge: 12/05/16 56M admitted to the [facility] after he developed cellulitis and streaking lympnangitis from a dog bite sustained on 12/01/2016. developed cellulitis and Seen in ED next day on 12/02/2016 given IV ABx and sent home on PO Abx and told to come back 12/03/2016 for follow up. Which he did and at that time it was noted that the streaking improved but swelling and erythema worsened. Admitted to hospital on 12/03/2016 seen by ID and started on Vanco and Unasyn. Vanco stopped unasyn continued. Also seen by Hand surgery and advised PO Abx and discharge without surgical intervention. Significantly improved will follow up with ID and PMD. Will give 3PM dose of unasyn before discharge. Patient has augmentin at home but script written just in case. Minutes to complete discharge: 45 Discharge Summary Reason For Visit: WOUND CHECK Current Active Problems Cellulitis and abscess of hand (Acute) Dog bite of hand (Acute) Condition: Stable - Instructions Diet, Activity, Other Instructions: finish all the augmentin until completion you stated you have 1 week supply at home-take it twice a day with food if your hand gets worse go to the nearest emergency room right away follow up with the primary care doctor follow up with Dr. Mccarty from infectious disease in case you do not have augmentin i sent it to the pharmacy for you Good luck It was a pleasure taking care of you Referrals: Ramírez Mccarty MD [Staff Physician] - 1 Week Ricardo Skinner MD [Primary Care Provider] - 1 Week Disposition: HOME - Home Medications Comprehensive Discharge Medication List: Ambulatory Orders Diphenhydramine [Benadryl Capsule -] 50 mg NR HS PRN 12/03/16 Amoxicillin/Potassium Clav [Augmentin 875-125 Tablet] 1 each PO BID #14 tab 06/13 This patient is new to me today: No Emergency Visit: Yes ED Registration Date: 12/03/16 Care time: The patient presented to the Emergency Department on the above date and was hospitalized for further evaluation of their emergent condition. Critical Care patient: No - Discharge Referral Referred to [facility] No
--- NOTE | 2016-12-05 14:41 | PN ---
Teaching Attending Note Name of Resident: Abdias Miller ATTENDING PHYSICIAN STATEMENT I saw and evaluated the patient. I reviewed the resident's note and discussed the case with the resident. I agree with the resident's findings and plan as documented. SUBJECTIVE: no fever or chills , feels much better . no more drainage from hand OBJECTIVE: NAD CV: RRR Lungs : CTAB ext : no edema over LE . resolved erythema and edema over L dorsal hand. Small wound with no drainage even when squeezed. no TTP . Assessment/Plan: 56 y/o gentleman with h/o PLATER PRODUCTION lymphoma , in remission now , who rpesented with worsening hand swelling , and pain with draining wound after a dog bite 1- Cellulitis of L dorsal hand with abscess formation and lymphangitis. Significantly improved , and it seems like the abscess drained spontaneously wound cx showing prelim , possible pastorella pt wants to go home, will send o n Augmentin x 7 days and to follow up closely with ID and PCP
== END 2016-12-05 15:00 | disposition home or self-care (01) | DRG 603 ==
LOC: JER 13:46 → JERFT 13:46 → JERBED 15:47 → J6S 18:43
PROVIDERS: ADMIT Internal Medicine; ATTEND Internal Medicine
DX: L03.114 Cellulitis of left upper limb (principal); Z94.84 Stem cells transplant status; C85.80 Other specified types of non-Hodgkin lymphoma, unspecified site; S61.452A Open bite of left hand, initial encounter; F17.210 Nicotine dependence, cigarettes, uncomplicated; W54.0XXA Bitten by dog, initial encounter; Y93.89 Activity, other specified; Y92.098 Other place in other non-institutional residence as the place of occurrence of the external cause; Y99.8 Other external cause status
CPT/HCPCS: 36415; 80053; 85025; 85027; 85651; 86140; 87070; 87205; 93005; 93010; 99281-25

== ENCOUNTER 2022-06-06 10:34 | Emergency (ER) | payer OTHER ==
[2022-06-06 10:47] VITALS: BP 134/98; PULSE 98; RESP 16; TEMP 98.3; BMI 32.3
[2022-06-06] MEDS ORDERED: ONDANSETRON 4 MG/2 ML VIAL IVPB ONE (11:01)
[2022-06-06] MEDS ORDERED: SODIUM CHLORIDE 0.9% 500 ML INFUS.BAG IV ONE (11:01)
[2022-06-06] MEDS ORDERED: ONDANSETRON 4 MG/2 ML VIAL ONE (11:08)
[2022-06-06 11:54] LABS: ALBUMIN 4.6 g/dl (3.4-5.0); BILIRUBIN,TOTAL 0.8 mg/dl (0.2-1); CALCIUM 10.5 mg/dl (8.5-10); CREATININE 1.1 mg/dl (0.55-1.3); TOT PROT 8.1 g/dl (6.4-8.2)
[2022-06-06 11:58] LABS: HEMATOCRIT 48.4 % (35.4-49); HEMOGLOBIN 16.9 G/dL (11.7-16.9); MCH 32.3 pg (25.7-33.7); MEAN CELL VOLUME 92.3 fl (80-96); MEAN PLT VOLUME 9.2 fl (7.5-11.1); RBC 5.24 10^6/uL (4.00-5.60); RDW 13.9 % (11.9-15.9); WHITE BLOOD COUNT 9.2 10^3/uL (4.0-10.8)
[2022-06-06] MEDS ORDERED: MECLIZINE HCL 25 MG TABLET (FP) PO ONE (12:25)
[2022-06-06] MEDS ORDERED: MECLIZINE HCL 25 MG TABLET (FP) ONE (12:29)
== END 2022-06-06 15:17 | disposition home or self-care (01) ==
LOC: FER 10:34
PROC: 3E033GC Introduction of Other Therapeutic Substance into Peripheral Vein, Percutaneous Approach (ICD-10-PCS; principal; 2022-06-06)
DX: R42 Dizziness and giddiness (principal)
CPT/HCPCS: 36415; 70450-TC; 80053; 85027; 99284-25